=== PATIENT | male | born 1955 | race Caucasian/White ===

== ENCOUNTER 2021-07-17 15:27 | Emergency (ER) | payer MEDICARE ==
[2021-07-17] MEDS ORDERED: Sodium Chloride 0.9% 100 ML BAG FS ONE (15:28)
[2021-07-17] MEDS ORDERED: Iopamidol 370 76% 125 ML VIAL FS ONE (15:28)
[2021-07-17 16:07] LABS: #Basophils 0.1 thou/uL (0.0-0.2); #Lymphocytes 1.1 thou/uL (1.20-3.40); #Monocytes 0.5 thou/uL (0.11-0.59); #Neutrophils 3.9 thou/uL (1.40-6.50); %Basophils 1.3 % (0.0-1.0); %Lymphocytes 19.9 % (21.0-51.0); %Monocytes 9.5 % (0.0-10.0); %Neutrophils 69.3 % (42.0-75.0); Mean Corpuscular HGB CONC 30.9 g/dL (32.0-36.0); Mean Corpuscular Volume 93.8 fL (78.0-98.0); Mean Platelet Volume 5.4 fL (7.4-10.4); Platelet Count 178 thou/uL (130-400); RBC Distribution Width 17.1 % (11.5-14.5); Red Blood Cell (RBC) Count 4.12 mill/uL (4.70-6.10); White Blood Cell (WBC) Count 5.6 thou/uL (4.8-10.8)
[2021-07-17 16:22] LABS: ALT (SGPT) 11 U/L (8-55); AST (SGOT) 14 U/L (5-34); Albumin 3.8 g/dL (3.4-4.8); Alkaline Phosphatase 67 U/L (40-110); Anion Gap 14 mmol/L (10-20); BUN (Urea Nitrogen) 12 mg/dL (8.4-25.7); Bilirubin, Total 0.6 mg/dL (0.2-1.2); Calc. Creatinine Clearance 0 mL/min (70-130); Carbon Dioxide 29 mmol/L (23-31); Chloride 102 mmol/L (98-107); Globulin 2.8 g/dL (2.4-3.5); Glucose 120 mg/dL (80-115); Potassium 3.9 mmol/L (3.5-5.1); Protein, Total 6.6 g/dL (5.8-8.1); Sodium 141 mmol/L (136-145)
[2021-07-17] MEDS ORDERED: Furosemide 40 MG/4 ML VIAL ONE (16:24)
[2021-07-17 16:39] LABS: CKMB 1.2 ng/mL (0-6.6)
[2021-07-17 16:40] LABS: SARS-CoV-2 NAA Rapid Test Not Detected (NotDetected)
[2021-07-17] MEDS ORDERED: Aspirin Chewable 81 MG TAB ONE (16:50)
[2021-07-17] MEDS ORDERED: Enoxaparin Sodium 60 MG/0.6 ML SYRINGE ONE (18:06)
[2021-07-17] MEDS ORDERED: Enoxaparin Sodium 100 MG/ML SYRINGE ONE (18:06)
== END 2021-07-17 20:32 | disposition short-term general hospital (02) ==
LOC: MADERS 15:27
DX: I26.99 Other pulmonary embolism without acute cor pulmonale (principal); J43.9 Emphysema, unspecified; R09.02 Hypoxemia; R77.8 Other specified abnormalities of plasma proteins; I49.3 Ventricular premature depolarization; I50.9 Heart failure, unspecified; Z20.822 Contact with and (suspected) exposure to COVID-19; Z87.891 Personal history of nicotine dependence; Z85.46 Personal history of malignant neoplasm of prostate; Z79.899 Other long term (current) drug therapy
CPT/HCPCS: 0240U; 36415; 71045; 71275; 80053; 82553; 83735; 83880; 84484; 85025; 85379; 93005; 94760; 96372; J1650; J1940; J7620; Q9967